=== PATIENT | female | born 1975 | race Caucasian/White ===

== ENCOUNTER → 2017-03-22 | Outpatient (CLI) | payer OTHER | LOC: CPRE 11:25 | PROVIDERS: ATTEND Neurological Surgery | DX: Z01.812 Encounter for preprocedural laboratory examination (principal); M48.02 Spinal stenosis, cervical region; M50.10 Cervical disc disorder with radiculopathy, unspecified cervical region | CPT/HCPCS: 87640; 87641 ==

== ENCOUNTER 2017-03-29 05:54 | Observation (INO) | payer OTHER ==
[~2017-03-29] VITALS: Ht 162.6 cm; Wt 62.1 kg
[2017-03-29] MEDS ORDERED: CHLORHEXIDINE GLUCONATE 2 % 1 PACK (2 CLOTHS) TOPICAL PRN (06:45)
[2017-03-29] MEDS ORDERED: SODIUM CHLORID 0.9% 500 ML IV PRN (06:45)
[2017-03-29] MEDS ORDERED: VANCOMYCIN 1 GM/200 ML PREMIX ON-CALL IV SCH (06:45)
[2017-03-29] MEDS: SODIUM CHLOR 0.9% 1000 ML INJ 1,000 ML IV SCH ×2 (06:45→15:49)
[2017-03-29] MEDS ORDERED: POVIDONE IODINE 5% (ANTISEPSIS KIT) 4 APPLICATIONS EACH NARE PRN (06:45)
[2017-03-29] MEDS ORDERED: METOPROLOL TARTRATE 25 MG TAB PO PRN (06:45)
[2017-03-29] MEDS ORDERED: LACTATED RINGER'S 1000 ML IV PRN (06:45)
[2017-03-29] MEDS ORDERED: THROMBIN (TOPICAL) 5,000 UNIT VIAL ONE (06:54)
[2017-03-29] MEDS ORDERED: VANCOMYCIN HCL 1000 MG VIAL ONE (06:54)
[2017-03-29] MEDS ORDERED: BUPIVACAINE/EPINEPHRINE 0.5% PF 30 ML VIAL ONE (06:55)
[2017-03-29] MEDS ORDERED: GELFOAM SIZE 100 ONE (06:55)
[2017-03-29] MEDS ORDERED: ACETAMINOPHEN 1000 MG/100 ML 100 ML IV ONE (07:28)
[2017-03-29] MEDS: DEXAMETHASONE SOD PHOS 4 MG/ML VIAL ONE ×2 (07:28→20:13)
[2017-03-29] MEDS ORDERED: PROPOFOL 500 MG/50 ML INJ 100 ML ONE (07:30)
[2017-03-29] MEDS ORDERED: *diphenhydrAMINE HCL 50 MG/ML VIAL PERIprocedural Use ONLY ONE (11:04)
[2017-03-29] MEDS ORDERED: MIDAZOLAM HCL 2 MG/2 ML VIAL ONE (11:05)
[2017-03-29] MEDS: NS + KCL 20 MEQ INJ 1,000 ML IV SCH ×2 (11:14→13:40)
[2017-03-29] MEDS ORDERED: SODIUM CHLORIDE 0.9% FLUSH 10 ML FLUSH IV FLUSH PRN (11:15)
[2017-03-29] MEDS ORDERED: cloNIDine HCL 0.1 MG TAB PO PRN (11:15)
[2017-03-29] MEDS ORDERED: MENTHOL LOZENGE BUCCAL PRN (11:15)
[2017-03-29] MEDS ORDERED: ONDANSETRON HCL 4 MG/2 ML VIAL IV PUSH PRN (11:15)
[2017-03-29] MEDS ORDERED: ALUMINUM/MAGNESIUM/SIMETH 30 ML CUP PO PRN (11:15)
[2017-03-29] MEDS ORDERED: CYCLOBENZAPRINE HCL 10 MG TAB PO PRN (11:15)
[2017-03-29] MEDS ORDERED: MORPHINE SULFATE 2 MG/ML INJ IV PUSH PRN (11:15)
[2017-03-29] MEDS ORDERED: LACTULOSE SYRUP 20 GM/30 ML CUP PO PRN (11:15)
[2017-03-29] MEDS ORDERED: BISACODYL 10 MG SUPP RECTAL PRN (11:15)
[2017-03-29] MEDS ORDERED: HYDROmorphone HCL 2 MG TAB PO PRN (11:15)
[2017-03-29] MEDS ORDERED: MAGNESIUM HYDROXIDE SUSP 30 ML CUP PO PRN (11:15)
[2017-03-29] MEDS ORDERED: SENNOSIDES 8.6 MG TAB PO PRN (11:15)
[2017-03-29] MEDS ORDERED: PROMETHAZINE INJ 25 MG/ML VIAL IM PRN (11:15)
[2017-03-29] MEDS ORDERED: ACETAMINOPHEN 325 MG TAB PO PRN (11:15)
[2017-03-29] MEDS ORDERED: RESP: ALBUTEROL 2.5 MG/3 ML NEB (PRN) NEB (11:15)
--- NOTE | 2017-03-29 11:23 | PD.OP ---
MD Shaan Bundy MD Operative Report Date of Surgery: Mar 29, 2017 Preoperative Diagnosis: Cervical C5-6 disc osteophyte complex with associated spinal and foraminal stenosis with degenerative disc disease; intractable neck pain with right C6 radiculopathy. Postoperative Diagnosis: Same Procedure: Anterior cervical C5-6 microdiscectomy with interbody fusion; anterior C5-6 plate placement; C5-6 interbody cage placement; microsurgical technique Anesthesia: Gen. endotracheal by Kb meza Surgeon: Stephen Garcia M.D. Photographer Apprentice Lithographic(s): Helena Yoon Operation and Findings: Following administration of general endotracheal anesthesia, the patient received a gram of vancomycin and Decadron 10 mg intravenously. Sequential compression devices were placed in supine position on a Augustus table and all pressure points adequately padded. The head secured in a donut and anterior cervical region then shaved and prepped with Chloraprep and sterilely draped with Ioban along with the usual sterile draping. A transverse skin incision on the left side of the neck was then made after infiltrating the skin with 0.5% Marcaine with epinephrine solution extending down through the platysma. At the anterior border of the sternocleidomastoid further dissection was undertaken developing a plane between the carotid sheath laterally and the trachea esophagus medially. The prevertebral fascia was exposed and dissected out. The medial attachments of the longus colli muscles were detached and a self- retaining retractor used for exposure. The C5-6 disc space was localized with a marking the disc space and using lateral fluoroscopy. [place] distraction screws 14 mm length were placed one in the C5 and one in the C6 body interbody distraction and exposure. There was significant disc degeneration with disc height collapse and anterior osteophytes noted at the C5-6 level and the osteophytes were resected with a Leksell and annulus incised with a 15 blade and further dissection undertaken using microtechnique with microscope magnification. Diskectomy was undertaken with pituitaries and the endplates were also decorticated with curettes and drill bit. And more posteriorly there was disk osteophyte complex compressing the thecal sac along with a significant uncovertebral joint hypertrophy with foraminal stenosis particularly on the right side which was decompressed along with removal of the posterior longitudinal ligament. The foramen was decompressed bilaterally using a Kerrison 's and palpation with a nerve hook, the exiting nerve roots were felt to be free. The area was then copiously irrigated. I then placed a Peek cage packed with local autograft bone at the C5-6 interspace under fluoroscopy guidance. [place] distraction pins were removed and the holes plugged with Gelfoam for hemostasis. In order to facilitate the fusion and provide stabilization, a uni- plate was then placed with a 14 mm variable angle screws in the C5 body and a 14 mm fixed angle screw in the C6 body. The plate screw locking mechanism was then engaged. AP and lateral fluoroscopy confirmed good placement of the construct and the retractor was then removed. Muscular bleeding points were cauterized with bipolar cautery and Gelfoam was then also used for hemostasis which was removed. The platysma was then approximated using 3-0 Vicryl interrupted stitches and 3-0 Vicryl subcuticular stitch also placed in an interrupted fashion, and final skin closure was with Mastisol and Steri-Strips. Sterile dressing was then applied. The patient was then extubated and taken to the recovery room. There are no intraoperative complications and all sponge and needle counts were correct at the end of procedure. Estimated blood loss was about 50 cc. The patient did undergo intraoperative neurologic monitoring which remained stable throughout the surgery. Stephen Garcia MD Mar 29, 2017 11:23
[2017-03-29] MEDS ORDERED: ONDANSETRON HCL 4 MG/2 ML VIAL IV ONE (12:00)
[2017-03-29] MEDS ORDERED: NEOSTIGMINE 5 MG/5 ML SYRINGE IV PUSH ONE (12:00)
[2017-03-29] MEDS ORDERED: LIDOCAINE HCL 1% PF 5 ML SYRINGE OTHER ONE (12:00)
[2017-03-29] MEDS ORDERED: PROPOFOL 200 MG/20 ML AMP IV ONE (12:00)
[2017-03-29] MEDS ORDERED: DEXAMETHASONE SOD PHOS 4 MG/ML VIAL IV ONE (12:00)
[2017-03-29] MEDS ORDERED: ROCURONIUM INJ 50 MG/5 ML SYRINGE IV PUSH ONE (12:00)
[2017-03-29] MEDS ORDERED: GLYCOPYRROLATE 1 MG/5 ML SYRINGE IV PUSH ONE (12:00)
[2017-03-29] MEDS ORDERED: ePHEDrine/NS 25 MG/5 ML SYRINGE IV ONE (12:00)
[2017-03-29] MEDS ORDERED: PHENYLEPH/NS 1000 MCG/10 ML SYR IV ONE (12:00)
[2017-03-29 12:15] VITALS: BP 127/71; PULSE 97; RESP 18; TEMP 98; O2SAT 99
--- NOTE | 2017-03-29 12:27 | RADRPT ---
EXAM DATE/TIME: 03/29/2017 08:00 [facility] COMPARISON: No previous studies available for comparison. INDICATIONS : Cervical fusion, C5-6. MEDICAL HISTORY : Unobtainable. SURGICAL HISTORY : Unobtainable. ENCOUNTER: Initial ACUITY: 1 day PAIN SCORE: Non-responsive. LOCATION: Cervical. FINDINGS: Status post anterior cervical fusion C5-C6. Anatomic alignment. CONCLUSION: Anatomic alignment. Dougie Pressley MD FACR on March 29, 2017 at 12:25 Board Certified Radiologist. This report was verified electronically.
[2017-03-29] MEDS ORDERED: DO NOT ADM ANY ANTICOAGULANT DRUGS PRN (13:30)
[2017-03-29] MEDS ORDERED: DEXAMETHASONE SOD PHOS 4 MG/ML VIAL IV PUSH SCH ×2 (14:00→20:00)
[2017-03-29 15:36] VITALS: BP 124/68; PULSE 89; RESP 18; TEMP 98.2; O2SAT 98
[2017-03-29] MEDS: traMADol HCL 50 MG TAB PO PRN ×2 (15:50→20:11)
[2017-03-29 20:45] VITALS: BP 134/78; PULSE 76; RESP 18; TEMP 98; O2SAT 97
[2017-03-29] MEDS: DOCUSATE SODIUM 50 MG/SENNA 8.6 MG TAB PO SCH (20:45)
[2017-03-29] MEDS: SODIUM CHLORIDE 0.9% FLUSH 10 ML FLUSH IV FLUSH SCH (20:45)
[2017-03-29] MEDS ORDERED: ZOLPIDEM TARTRATE 5 MG TAB PO PRN (21:00)
[2017-03-30 00:40] VITALS: BP 119/70; PULSE 67; RESP 18; TEMP 98.1; O2SAT 97
[2017-03-30] MEDS: SODIUM CHLOR 0.9% 1000 ML INJ 1,000 ML IV SCH (01:52)
[2017-03-30 04:50] VITALS: BP 117/63; PULSE 70; RESP 18; TEMP 97.7; O2SAT 96
[2017-03-30] MEDS: traMADol HCL 50 MG TAB PO PRN (07:53)
[2017-03-30] MEDS: DOCUSATE SODIUM 50 MG/SENNA 8.6 MG TAB PO SCH (07:53)
[2017-03-30] MEDS: SODIUM CHLORIDE 0.9% FLUSH 10 ML FLUSH IV FLUSH SCH (07:54)
[2017-03-30 08:17] VITALS: BP 117/76; PULSE 72; RESP 17; TEMP 97.9; O2SAT 97
[2017-03-30] MEDS ORDERED: PANTOPRAZOLE SOD 40 MG DELAYED RELEASE TAB PO SCH (09:00)
[2017-03-30 09:02] VITALS: RESP 16
--- NOTE | 2017-03-30 09:37 | HHI.NSPN ---
History Chief Complaint: Mild incisional discomfort. Interval History 03/30/17: Pt underwent an anterior cervical C5-6 microdiscectomy with interbody fusion; anterior C5-6 plate placement; C5-6 interbody cage placement on 03/29/17. She is doing well this morning. No radiculopathy or paresthesias in UEs. Good strength in UEs. Tolerated breakfast good with mild throat discomfort. Ambulating to bathroom independently. Review of Systems General: Negative for: fever, chills, insomnia Respiratory: Negative for: shortness of breath, cough, sputum Cardiovascular: Negative for: chest pain Gastrointestinal: Negative for: nausea, vomitting, diarrhea, constipation Exam Results Vital Signs Date Time Temp Pulse Resp B/P (MAP) Pulse Ox O2 Delivery O2 Flow Rate FiO2 03/30/17 09:02 16 03/30/17 08:17 97.9 72 117/76 (90) 97 03/29/17 11:55 Room Air 03/29/17 11:15 2 Physical Examination General: Pt awake and alert in NAD with stable vital signs. Resp: CTA bilaterally Heart; NSR no murmurs Abd: Soft positive bs Skin: Incision clean and dry. New bandage placed. Muscle: Moves all 4 extremities with 5/5 strength. Ambulating independently. Neuro: Pt awake and alert. Follows commands well. Speech clear and appropriate. Sensation intact to light touch. Lab, Micro, Other Results Last Impressions Cervical Spine X-Ray 03/29/17 0000 Signed Impressions: Service Date/Time: Wednesday, March 29, 2017 08:00 - CONCLUSION: Anatomic alignment. Dougie Pressley MD FACR Medical Decision Making Impression and Plan A: 41 y/o FM s/p C5/C6 anterior cervical fusion with cervical plate placement. P: Discharge pt home Discussed restrictions. Follow up as instructed on preop instruction sheet. Matthew Savage Mar 30, 2017 9:36 am
[2017-03-30] MEDS ORDERED: CYCL10TA PO (09:47)
== END 2017-03-30 10:48 | disposition home or self-care (01) ==
LOC: HSDC 05:54 → HSDI 11:19 → N05A 12:12
PROVIDERS: ADMIT Neurological Surgery; ATTEND Neurological Surgery
DX: M48.02 Spinal stenosis, cervical region (principal); M50.10 Cervical disc disorder with radiculopathy, unspecified cervical region; M25.78 Osteophyte, vertebrae
CPT/HCPCS: 00600; 20936; 22551; 22845; 22853; 72040; 76000; 84702; 94150; 96360; C1713; G0378; J0131; J0690; J1100; J1200; J2250; J2370; J2405; J2710; J3010; J3370; J3480; J7030; J7120